=== PATIENT | female | born 1990 | race Caucasian/White ===

== ENCOUNTER 2016-08-24 00:03 | Emergency (ER) | payer OTHER ==
[~2016-08-24] VITALS: Ht 172.7 cm; Wt 65.0 kg
[~2016-08-24 00:03] MED LIST: BENZ100 PO; IBUP800T23 PO; MMW SS
[2016-08-24 00:05] VITALS: BP 129/90; PULSE 118; RESP 16; TEMP 98; O2SAT 99
--- NOTE | 2016-08-24 00:25 | PD ---
HPI Chief Complaint: Laceration/Skin Injury Time Seen by Provider: 00:25 Travel History International Travel<30 days: No Contact w/Intl Traveler<30days: No Traveled to known affect area: No History of Present Illness HPI 28-year-old female who is right handed presents to emergency department for a laceration sustained to her left distal pinky. Patient states she cut the pinky accidentally with an old, dull, apple juani. Reports significant pain at the site. No alterations in sensation. No limitations in range of motion. She has no other symptoms to report. She is uncertain of her tetanus status. [facility] Past Medical History Anxiety: Yes Diminished Hearing: No Immunizations Current: Yes : 1 Para: 1 Social History Alcohol Use: Yes (OCC.) Tobacco Use: Yes (1 PPD) Substance Use: No Allergies-Medications (Allergen,Severity, Reaction): Coded Allergies: Amoxil (Verified Allergy, Severe, 08/24/16) Penicillin (Verified Allergy, Severe, HIVES, 08/24/16) Sulfa (Verified Allergy, Severe, rash, 08/24/16) Reported Meds & Prescriptions Reported Meds & Active Scripts Active Ibuprofen 600 Mg Tab 600 Mg PO Q8HR PRN Keflex (Cephalexin) 500 Mg Cap 500 Mg PO Q6H 5 Days Review of Systems Except as stated in HPI: all other systems reviewed are Neg Physical Exam Narrative GENERAL: Well-nourished, well-developed female patient, ambulatory no acute distress SKIN: Focused skin assessment warm/dry. There is a 2 cm laceration on the lateral aspect of the volar surface of the distal left fifth digit. Bleeding is controlled. It is fairly superficial and well approximated. HEAD: Normocephalic. EYES: No scleral icterus. No injection or drainage. NECK: Supple, trachea midline. No JVD or lymphadenopathy. CARDIOVASCULAR: Regular rate and rhythm without murmurs, gallops, or rubs. RESPIRATORY: Breath sounds equal bilaterally. No accessory muscle use. MUSCULOSKELETAL: No cyanosis, or edema. Full flexion-extension of the affected digit. Sensation intact distal affected digit. BACK: Nontender without obvious deformity. No CVA tenderness. Data Data Last Documented VS Vital Signs Date Time Temp Pulse Resp B/P Pulse Ox O2 Delivery O2 Flow Rate FiO2 08/24/16 00:05 98.0 118 16 129/90 99 Room Air Orders Tetanus/Diphtheria Tox Adult (Tetanus/Di (08/24/16 00:30) Ibuprofen (Motrin) (08/24/16 01:00) Splint Or Brace Apply/Monitor (08/24/16 00:46) Finger Splint (08/24/16 ) MDM Medical Decision Making Medical Screen Exam Complete: Yes Emergency Medical Condition: Yes Medical Record Reviewed: Yes Differential Diagnosis Laceration superficial versus deep versus avulsion versus abrasion Narrative Course 26 year-old female presents to the emergency department for evaluation of a laceration to her left fifth digit. Wound is cleansed and approximated. Patient is septic shock tetanus status. She is counseled on care. She agrees to return immediately with any acute worsening of symptoms. Procedures Procedure Narrative LACERATION LOCATION: Left fifth digit LENGTH: 2 cm NUMBER OF STITCHES/LEIGHTON: Steri-Strips REPAIR: The area of the laceration was prepped with Betadine and sterilely draped. The wound was copiously irrigated and explored without evidence of foreign body, tendon injury or neurovascular injury. The wound was closed using Steri-Strips.. This was a single layer repair. A sterile dressing was applied. The patient was advised to keep the dressing clean and dry. Patient tolerated the procedure well. Diagnosis Primary Impression: Laceration of finger of left hand Qualified Code: S61.219A - Laceration of finger of left hand, initial encounter Referrals: Primary Care Physician Patient Instructions: Finger Laceration (ED), General Instructions Additional Instructions: Keep the area clean and dry Follow-up with the primary care provider Brace for comfort and support Return immediately with any acute worsening of symptoms Med/Other Pt SpecificInfo: Prescription(s) given Scripts Ibuprofen 600 Mg [id number] Mg PO Q8HR PRN (PAIN) #30 TAB Ref 0 Prov:Micaela Bonilla 08/24/16 Cephalexin (Keflex)500 Mg [id number] Mg PO Q6H 5 Days Ref 0 Prov:Micaela Bonilla 08/24/16 Disposition: 01 DISCHARGE HOME Condition: Stable Micaela Bonilla August 24, 2016 00:25
[2016-08-24] MEDS ORDERED: TETANUS/DIPHTHERIA TOXOID ADULT 0.5 ML VIAL IM ONE (00:30)
[2016-08-24] MEDS ORDERED: IBUP-232 PO (00:48)
[2016-08-24] MEDS ORDERED: CEPH-460 PO (00:48)
[2016-08-24] MEDS ORDERED: IBUPROFEN 800 MG TAB PO ONE (01:00)
== END 2016-08-24 01:27 | disposition home or self-care (01) ==
LOC: NEPK 00:03
DX: S61.217A Laceration without foreign body of left little finger without damage to nail, initial encounter (principal); F17.210 Nicotine dependence, cigarettes, uncomplicated; W26.8XXA Contact with other sharp object(s), not elsewhere classified, initial encounter; Y93.9 Activity, unspecified; Y92.009 Unspecified place in unspecified non-institutional (private) residence as the place of occurrence of the external cause; Z88.2 Allergy status to sulfonamides; Z23 Encounter for immunization; Z88.0 Allergy status to penicillin
CPT/HCPCS: 29130; 90471; 90714